=== PATIENT | female | born 1975 | race Caucasian/White ===

== ENCOUNTER 2017-03-15 23:59 | Observation (INO) | payer OTHER ==
[~2017-03-15] VITALS: Ht 160 cm; Wt 137.6 kg
[2017-03-16 01:11] LABS: CREATININE 0.6 mg/dL (0.6-1.3); POTASSIUM 3.8 mEq/L (3.7-5.4)
[2017-03-16 01:11] LABS: EOSINOPHIL (%) 2.4 % (0-5); EOSINOPHIL COUNT 0.1 K/uL (0-0.3); HEMATOCRIT 38.6 % (36.0-46.0); IMMATURE GRANULOCYTE (%) 0.3 % (0.0-0.7); INSTRUMENT ABS NEUTROPHIL CT 3.5 K/uL; LYMPHOCYTE COUNT 1.9 K/uL (1.0-2.8); MCHC 34.2 G/DL (30.0-36.0); MCV 84.8 FL (83-99); MEAN PLAT.VOLUME 11.5 uM^3 (9.5-12.4); MONOCYTE (%) 6.6 % (3-12); MONOCYTE COUNT 0.4 K/uL (0-0.8); NEUTROPHIL (%) 58.8 % (45-76); NEUTROPHIL COUNT 3.5 K/uL (1.8-6.4); PLATELET COUNT 232 K/uL (156-360); RBC DIS.WIDTH-CV 12.3 % (11.8-14.6); RBC DIS.WIDTH-SD 37.6 % (39-53); RED BLOOD COUNT 4.55 M/uL (3.80-5.20); WHITE BLOOD COUNT 5.9 K/uL (4.1-10.2)
[2017-03-16 01:33] LABS: TROP-I INTERPRETATION NEGATIVE; TROPONIN-I < 0.01 ng/mL (0.0-0.30)
[2017-03-16 02:12] LABS: HDL CHOLESTEROL 41 MG/DL (Desirable>=50); LDL CHOLESTEROL 45 mg/dL (Desirable<100); NON-HDL CHOLESTEROL 87 mg/dL (Desirable<160); TOTAL CHOLESTEROL 128 mg/dL (Desirable<200); TRIGLYCERIDES 212 MG/DL (Normal: <150)
[2017-03-16 05:35] VITALS: BP 128/67
[2017-03-16 07:30] VITALS: BP 113/59
[2017-03-16 07:30] LABS: ANION GAP 9 MEQ/L (2-14); CHLORIDE 106 MEQ/L (99-109); GFR ESTIMATE (CALCULATED) > 59 mL/min/; GLUCOSE 137 mg/dL (70-99); SAMPLE HEMOLYSIS CHECK 0; SAMPLE ICTERIC CHECK 0; SAMPLE LIPEMIA CHECK 0; SODIUM 140 MEQ/L (136-147); TROP-I INTERPRETATION NEGATIVE; TROPONIN-I < 0.01 ng/mL (0.0-0.30); UREA NITROGEN (BUN) 8 mg/dL (9-23)
[2017-03-16 08:30] LABS: Estimated Average Glucose 100 mg/dL (70-123); HEMOGLOBIN A1c (GLYCOHEMOGLOB) 5.1 % HGB (Below 5.7)
[2017-03-16 11:51] VITALS: BP 115/78
[2017-03-16] MEDS ORDERED: ASPIR-LOW81 MG PO (12:23)
[2017-03-16] MEDS ORDERED: PRAVASTATIN SOD40 MG PO (12:23)
[2017-03-16 13:03] LABS: TROP-I INTERPRETATION NEGATIVE; TROPONIN-I < 0.01 ng/mL (0.0-0.30)
== END 2017-03-16 12:59 | disposition home or self-care (01) ==
LOC: EME 23:59 → EDOF 03-16 03:56 → ENRESERV 03-16 03:57 → 5WEST 03-16 05:14
PROVIDERS: Emergency Medicine; Hospitalist
DX: G43.909 Migraine, unspecified, not intractable, without status migrainosus (principal); E66.01 Morbid (severe) obesity due to excess calories; Z68.43 Body mass index [BMI] 50.0-59.9, adult
CPT/HCPCS: 70496; 70498; 70551; 80047; 80048; 80061; 82607; 82746; 83036; 84484; 85025; 93005; 99281; 99285; G0378; J2060